=== PATIENT | male | born 1965 | race Caucasian/White ===

== ENCOUNTER 2024-10-01 06:03 | Inpatient (IN) | payer OTHER, SELFPAY ==
[2024-09-24 12:39] VITALS: BMI 25.0
[2024-10-01] VITALS (17 sets, daily range): BP systolic 93–113; BP diastolic 62–74; PULSE 60–119; RESP 9–20; TEMP 35.5–36.7; O2SAT 96–100; BMI 25.0
--- NOTE | 2024-10-01 06:34 | DI.RAD.S_ITS ---
PROCEDURE: XR KNEE RT 1TO2V INDICATIONS: revision tka TECHNIQUE: 2 view(s) of the knee acquired. COMPARISON: Outside Facility, CR, XR KNEE RT 4V, 07/19/2024, 8:19. FINDINGS: Bones: Patient is status post knee joint arthroplasty. Hardware components are in expected positions. Visualized bony structures are intact. Soft tissues: Overlying postoperative changes are noted. IMPRESSION: Expected post-operative appearance of a knee arthroplasty. Dictated by: Sumi Avalos M.D. on 10/01/2024 at 17:41 Approved by: Sumi Avalos M.D. on 10/01/2024 at 17:42
[2024-10-01] MEDS: ACETAMINOPHEN 325 MG TABLET 975 MG PO (06:51)
[2024-10-01] MEDS: MELOXICAM 7.5 MG TABLET 15 MG PO (06:52)
[2024-10-01] MEDS: LACTATED RINGERS 1,000 ML 42 ML IV ×4 (07:05→15:09)
--- NOTE | 2024-10-01 07:44 | PM.PREOP ---
Pre-operative Note Interval Note History & Physical reviewed/Exam performed by Physician: Yes Changes to H&P: No
[2024-10-01] MEDS: CEFAZOLIN 2 GM/100 ML PREMIX 100 ML IV ×3 (08:15→14:15)
[2024-10-01] MEDS: TRANEXAMIC ACID 1,000 MG VIAL 1000 MG INJ ×2 (08:20→15:00)
--- NOTE | 2024-10-01 08:47 | SUR.OPER ---
Supine on padded OR bed. Pillow under head, arms secured on padded armboards <90 degree abduction. Safety belt across torso. Non-operative leg secured with tape over blanket over lower leg. Operative leg secured in RO)BBpositioner. Foam padded brace at thigh of operative leg.
--- NOTE | 2024-10-01 08:49 | SUR.OPER ---
Supine on padded OR bed. Pillow under head, arms secured on padded armboards <90 degree abduction. Safety belt across torso. Non-operative leg secured with tape over blanket over lower leg. Operative leg secured in Figueroa positioner. Foam padded brace at thigh of operative leg.
[2024-10-01] MEDS: GENTAMICIN 80 MG in SODIUM CHLORIDE 0.9% 100 ML 102 MG IV (09:16)
[2024-10-01] MEDS: VANCOMYCIN 1,000 MG VIAL 1000 MG TOP (09:18)
[2024-10-01] MEDS: BUPIVACAINE 0.5% W/ EPI (PF) 30 ML VIAL 60 ML INJ (09:20)
[2024-10-01] MEDS: KETOROLAC 30 MG/ML VIAL IM (09:28)
--- NOTE | 2024-10-01 11:20 | SUR.OPER ---
James Huang RN called and gave patient's an update at 1120.
[2024-10-01] MEDS: TOBRAMYCIN 1.2 GM VIAL INTRA-ARTI (14:00)
--- NOTE | 2024-10-01 15:31 | P.OP_ITS ---
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 Post-op diagnosis: same Procedure & Clinicians Procedure: 1) Explantation of right total knee arthroplasty (CPT 18293) 2) Removal of prior right knee ACL interference screw (CPT 61334) 3) Placement of intraosseous needle for intraosseous vancomycin infusion (CPT 67199) Same procedure(s) as scheduled: Yes Surgeon: Tod Harding Control Technician: Stephanie Avalos Anesthesia Type: General Operative Notes Findings: No gross purulence encountered in the knee joint Specimen(s): other (5 specimens sent) Applied: none Estimated Blood Loss (mL): 450 Tourniquet time (min): 240 Procedure in detail: Explantation of prior right total knee arthroplasty for 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, with removal of deep buried implant (femoral ACL interference screw) and intraosseous administration of vancomycin Antibiotics: * 2 g Cefazolin IV administered at procedure start as well as 3 hours into procedure * 1 g Vancomycin administed intraosseously Cultures: * Retropatellar fat pad * Tibial canal * Femoral canal * Medial gutter * Lateral gutter Procedure Summary: During the 1st of 2 surgeries performed today I explanted the patient's prior right total knee arthroplasty, removed a femoral interference screw from his femur from a prior ACL reconstruction, and extensively debrided the knee as well as prepping the joint surface for an eventual revision right total knee arthroplasty using robotic assistance. I did not note any gross purulence in the joint and noted that the femoral and tibial implants were well fixed. The femur, tibia, and patella were all removed and prepped respectively. Debridement of the joint included clearance of the medial and lateral gutters, excisional debridement of the posterior capsule, intramedullary reaming to remove any bacteria from the femoral and tibial canals, and an extensive chemical debridement which consisted of a total of 9 L of normal saline along with independent soaks of Betadine and peroxide. Procedure in Detail: This 59-year-old male patient was referred to me for a periprosthetic joint infection of his right total knee arthroplasty which had been implanted at an outside facility within the last year. We discussed at length the treatment options for this diagnosis, in particular focusing on two-stage versus single stage knee revision. He is 59 years old, in good health, and had a low virulence organism (C. acnes) so based on the recent multicenter randomized controlled trial demonstrating equivalent infection clearance results with single stage exchange as compared to two-stage exchange did provide him with the option of a single stage exchange. Desiring to avoid the morbidity of an additional surgery the patient wished to proceed with a single stage exchange. Prior to moving forward with surgery I ensured that he was optimized from a medical standpoint and arranged for a consultation with an infectious disease doctor who I also spoke with regarding his care. After arriving at a definitive plan for surgery as well as intraoperative and postoperative antibiotics the surgery was scheduled for today. The patient was counseled extensively regarding the surgery with regards to the risks and benefits and wished to proceed.The patient was met in the preoperative holding area the day of the procedure and all questions were answered. The patient?s nares were swabbed in order to decolonize them from MRSA. Informed consent was signed and the right limb was marked with indelible ink.? The patient was brought back to the operating room where anesthesia was induced. The patient was transferred to the operating table and all bony prominences were padded. The operative site was prepped and draped in the usual sterile fashion. A second prep stick was utilized following drape placement. The incision was marked corresponding to the medial aspect of the tibial tubercle and the patella. Ioban was wrapped circumferentially around the knee. Prior to incision, tranexamic acid and cefazolin were administered. Templating images were displayed. A timeout procedure was performed verifying the patient?s identity, medical comorbidities, allergies, relevant medications, anesthesia type and the surgical plan. All present were in agreement. The assistance of a physician physical laboratory assistant was required for positioning, room setup, soft tissue retraction and wound closure. Without this assistance, the procedure would have been significantly more challenging and time consuming.?? The tourniquet [was] inflated prior to incision. Prior to making an incision I made a stab incision distally and inserted a intraosseous needle into the tibia. I then infiltrated 1 g of vancomycin diluted in 50 mL of normal saline into the tibia in order to bathe the soft tissues of the knee via venous backflow. I made an anterior incision over the knee, dissected through the subcutaneous tissues and identified the lateral border of the VMO. Medial and lateral soft tissue flaps were developed. I removed all of the prior Ethibond sutures from the prior arthrotomy closure. A medial parapatellar arthrotomy was performed ensuring that adequate capsular tissue would remain for closure at the conclusion of the procedure. The knee was brought into extension and the medial soft tissues were released off the joint line of the tibia. Tissue overlying the distal anterior femur was released to allow for later assessment for anterior notching but left in place. Inserted pins for the robotic array into the femur and tibia in areas which would eventually be within the cement mantle of the area were stems would be placed during the next procedure. I registered the robotic array using the [employer] robot and mapped the prior total knee arthroplasty using the robotic system to obtain the parameters of the previous total knee arthroplasty. I then took the knee through stressed and unstressed range of motion to evaluate the relative tension of the medial and lateral sides throughout a full arc of motion and constructed a plan for an eventual revision total knee arthroplasty that would result in a well-balanced knee. This incorporated external rotation of 5? and a 2 degree varus tibial cut in order to achieve appropriate balance. He was planned for a size 8 femur and a size 7 tibia. I then proceeded with component removal. I initially removed the medial congruent polyethylene insert using an osteotome. I removed this from the wound and then focused on the femur. I used a TPS saw to saw the bone cement interface and free this up. I initially did this from the ipsilateral side of the table to free up the lateral bone from the implant and then subsequently moved to the contralateral side of the table to free up a medial bone from the implant. I used osteotomes to further separate the implant from the bone on both the medial and lateral sides while carefully protecting nearby soft tissues with soft tissue retractors. I then used a device which captured the medial and lateral femoral condyles and backslapped this resulting in removal of the femoral implant with minimal bone loss as can be seen in the photograph. There was still cement remaining attached posteriorly but anteriorly the implant had been from the underlying cement. There was no significant bone loss in either of these areas. I then moved on to the tibial component. I hyperflexed and externally rotated the knee and used the TPS saw to free up the interface between the bone and the cement while carefully protecting the patellar tendon, MCL, and posterior neurovascular structures with separate retractors. I passed the saw around the keel anteriorly both on the medial and lateral portions of the tibial joint surface and was able to affectively free this up from the bone in those areas. I then used a single sided reciprocating saw to pass around the back of the knee to free up the posterior bone and then used the same back slap device as I had for the femur to remove the tibia. There was some bone remaining in the portion surrounding the posterior aspect of the keel which remained attached to the implant when it was removed. The tibia had remained well fixed, as had the femur. I then diligently removed all of the cement that I could visualize in the femur. There was a complete cement mantle remaining anteriorly which was removed in 1 piece. There were plugs of cement extending down into lug holes in both the medial distal femur and lateral distal femur which were removed with the aid of a bur. There was minimal posterior cement as this had come with the implant. I then turned my attention to the femoral interference screw from his prior ACL reconstruction. I was able to bur down to this and identified the screw. I had to remove some bone which had overgrown the tunnel entry site and then used a hexagonal screwdriver to remove the interference screw. Based on the plan for the eventual revision total knee arthroplasty which he had been planned on the robotic system I then burred the distal femur. I noted that there was no significant bone missing posteriorly which meant that posterior augments were not needed however distally the bone cement interface was fairly disrupted due to the removal of the cement from around the lugs so I planned for 5 mm distal augments on both the medial and lateral sides and then burred the femur accordingly. This involved burring anteriorly posteriorly and distally using the robotic system. I then moved onto the tibia. I initially removed the cement plug extending down the tibial canal by initially burring through it and then using osteotomes to fracture it before removing them with a rongeur. Once I had removed all of the cement in the tibial canal I then used the robotic system to plan the trajectory of a tibial cut which would match the resection that had been planned using the robotic system based on the soft tissue parameters of the knee. I did add depth to the tibial cut to ensure that I got a good bony interface for the eventual cementation of a revision total knee and planned to utilize a finned base plate augment to substitute for the bone loss. After pinning this in place cut the bone interface using a sagittal saw while protecting the soft tissues around the knee with 3 retractors. This also removed the vast majority of the cement at the interface with the bone however there were a few areas where I rongeured away additional cement that had protruded deeper into the tibial joint surface. I then trialed the primary implants for the tibia and femur respectively both manually and robotically. I found that both the robotic array and on my manual testing there was appropriate medial to lateral and flexion to extension balanced throughout a full arc of motion with a size 13 polyethylene insert. Being satisfied with the intended balancing of the eventual revision total knee I then removed the robotic arrays and the pins in the femur and the tibia. With the tibia and femur both prepped for the configuration of final implants I then debrided the intramedullary canals by progressively increasing the diameters of rigid reamers from 9 mm up to 18 mm. I obtained intramedullary cultures from both the femur and the tibia during this process and removed cancellous bone until there was diaphyseal interference in order to maximize bioburden reduction from contamination of the tibial and femoral canals respectively with bacteria. I then prepped for cones in both the femur and the tibia. On the femoral side this involved placement of a primary knee trial, cutting for a box, placing a small rigid Reamer through the femoral trial, using a boss Reamer and subsequently a cone Reamer, and broaching on the femur with a corresponding size broach. On the tibia I freehand reamed to plan a final implant placement for the tibial cone which would match the joint line obliquity of the tibial resection. Because of the bone loss from around the keel posteriorly during tibial component removal this involved reaming up large enough for a size 22 cone on the tibia. I placed cone trials in both the femur and the tibia and then placed implant trials which included the base plate augment on the tibia and the distal augments on the femur as well as stems for my planned stem sizes on the tibia and femur respectively. I again manually trialed and found that the components all fit appropriately and that the knee was appropriately balanced medial to lateral and with regards to flexion and extension throughout a full arc of motion. This involved stressing in varus and valgus in both flexion and extension and testing for flexion instability as well as passive range of motion of the knee in flexion and extension. I was satisfied with all parameters. I then brought the knee into full extension and placed clamps around the patellar implant to remove the patellar component. This involves using a sagittal saw to remove the patellar component and then using a bur to remove the remaining polyethylene as well as the cement from the cement bone interface. There was a significant amount of bone extending down into the old lug holes and this was removed in its entirety with a bur. I trialed a 38 mm patellar insert which corresponded to the prior size patellar insert. The lugs from the [employer] system fit appropriately with the lugs from the prior patellar insert and I did not have room to drill new holes as the removal of the surrounding cement had resulted in enlargement of the holes surrounding the pegs. I then com pleted the soft tissue debridement by removing the retropatellar fat pad. Part of this had been removed earlier and sent for culture. I also completed the debridement of the medial and lateral gutters and sent these for culture as well. I inserted a lamina bus trolley and taxi instructor into the knee in a position of flexion and used electrocautery to dissect the soft tissues off of the posterior capsule. And momentarily let down the tourniquet and evaluated for any bleeding to ensure that this had not resulted in an iatrogenic injury to the popliteal artery and did not note any brisk bleeding in that area. I then proceeded with a chemical debridement. I initially utilized pulse lavage both with the intramedullary pulse lavage and the soft tissue pulse lavage attachments. I irrigated up and down the canals as well as throughout the entirety of the soft tissues of the knee with 3 L of normal saline. I then poured dilute Betadine into the knee and allowed it to soak for 3 minutes. I then irrigated with an additional 3 L of normal saline again irrigating the bony ends, the intramedullary canals, and the soft tissues around the knee. I then poor dilute peroxide into the knee and allowed it to soak for 3 minutes. I then irrigated with an additional 3 L of normal saline again irrigating the bony ends, the intramedullary canals, and the soft tissues around the knee. The wound was closed with a running nylon suture and a dressing was placed. The operating room was broken down in its entirety with all instruments and drapes removed from the room. The entire operative team scrubbed out and the room was completely broken down including cleaning all of the surfaces in the room. The patient tolerated the procedure without immediate apparent complication. Plan for aftercare: * The patient was planned for an immediate return to the operating room for a second surgery to complete the second stage of his knee revision Complications: none Post-operative Condition: stable
--- NOTE | 2024-10-01 16:18 | PM.OP.1 ---
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 Surgeon: Tod Harding Product Safety Administrator: Stephanie Avalos Anesthesia Type: General, Peripheral nerve block and Local Operative Notes Findings: No significant cement or necrotic tissue noted remaining after prior surgery for total knee explantation Applied: implant(s) Estimated Blood Loss (mL): 150 Tourniquet time (min): 86 Procedure in detail: Revision Right Total Knee Arthroplasty for Periprosthetic Joint Infection with [employer] Revision Implants: Size 8 Femoral Component with 5 mm distal augments both medially and laterally and a [id number] stem Size 18 Femoral Cone Size 7 Tibial Component with 10 mm finned baseplate augment and a [id number] stem Size 22 Tibial Cone 13mm Constrained Steffi II HMWPE Insert 38 mm Steffi II Patellar Component Antibiotics: Calcium sulfate pellets laden with 1 g vancomycin and 80 mg gentamycin placed in the femoral and tibial canals PMMA cement laden with 1.2 g tobramycin and 2 g vancomycin 500 mg powdered vancomycin in the wound at closure Procedure Summary: During the 2nd surgery today I performed a revision total knee arthroplasty. After the prior explantation and extensive debridement revised the knee during this 2nd surgery given the evidence that a single stage exchange arthroplasty has equivalent outcomes in terms of infection eradication as compared to a 2 stage procedure with interval placement of an antibiotic spacer. During this 2nd surgery today I placed definitive implants for the patient's intended permanent total knee including biologic fixation in the femoral and tibial canals in the form of femoral and tibial cones and cemented the components in place using antibiotic laden cement. I also placed antibiotic laden calcium sulfate pellets down the femoral and tibial canals. Procedure in Detail: The operative site was prepped and draped in the usual sterile fashion. A time-out procedure was performed verifying the correct patient, operative site, and procedure to be performed. The assistance of a physician anesthetic assistant was necessary with soft tissue retraction, patient positioning, wound closure, and assistance with debridement. Without the assistance of a skilled physician anesthetic assistant the surgery would have taken significantly longer. Prior to incision consulted with anesthesia to ensure they felt it was appropriate to proceed with the 2nd surgery. All present were in agreement with moving forward with the 2nd surgery. The tourniquet had been let down and was reinflated. The sutures from the closure from the 1st surgery were removed and two Betadine soaked laps which had been left in the wound to protect the bony edges were removed as well. The tourniquet was reinflated. Total tourniquet time today exceeded 120 minutes however approximately 30 minutes of time was elapsed with the tourniquet deflated prior to reinflation at all times throughout the two separate surgeries. I proceeded with a chemical debridement. This involved irrigating with 3 L of normal saline throughout all of the soft tissues of the knee as well as in the femoral and tibial canals using a canal local company refrigerated truck driver. This was performed with pulse lavage. I then soaked all of the soft tissues of the knee for 3 minutes using a dilute mixture of Betadine and peroxide. I then again irrigated with 3 L of normal saline through pulse lavage in the soft tissues of the knee, as well as in the intramedullary canals. I then filled the knee with a dilute mixture of Betadine and peroxide and allowed this to soak for 3 minutes. I then performed a final 3 L normal saline pulse lavage. Final implants were prepared on the back table. The bony ends were dried. I placed antibiotic laden calcium sulfate pellets down the tibial canal and then manually impacted into place a tibial cone. Cement was mixed which included vancomycin and tobramycin. I placed this down the tibial canal. There was a cement restrictor there to pressurize this. I inserted the tibial component. I manually pressurized this and removed excess cement. I placed calcium sulfate pellets down the femoral canal. I placed a cement restrictor in the femoral canal. I placed the femoral cone. Cement was mixed. This was placed onto the femoral component as well as the femoral bone. I inserted the femoral component and impacted in place. I placed a trial polyethylene insert. I brought the knee into full extension. Irrigated and dried the patella. I placed cement on the patellar component and the cut surface of the patella. Placed a new patellar button and pressurized this. While the cement was drying (separate batches had been used for the tibia and the femur/patella respectively) I soaked the knee in a dilute mixture of Betadine and peroxide. Once cement had been allowed to dry trialed polyethylene inserts and elected to utilize a constrained polyethylene insert to maximize stability. I removed excess cement from around the femur and the tibia. Soaked the knee in a dilute mixture of Betadine and peroxide. This was the 5th soak using Betadine and peroxide that I had performed during the 2nd surgery today. Infiltrated the soft tissues around the knee with a dilute mixture of epinephrine, ropivacaine, and Toradol. This included performing a low adductor canal block using an 18 gauge blunt-tipped needle to ensure no intravascular infiltration. The knee was again assessed to ensure appropriate mechanical parameters. Range of motion was assessed by ensuring the knee could achieve full extension and assessing maximum passive knee flexion by elevating the femur and allowing the heel to passively fall towards the buttock. Gap symmetry was assessed by stressing the medial and lateral compartments in both extension and flexion. Laxity was assessed in both extension and flexion and the polyethylene trial was adjusted with shims as necessary. Patellar tracking was assessed with knee flexion. The tourniquet was let down and the polyethylene trial was removed. I inspected the knee inspected for excess cement and any residual bleeding. Once hemostasis was achieved I inserted the final polyethylene and ensured appropriate engagement of the dovetail locking mechanism.?? The arthrotomy was closed with non-absorbable interrupted suture ensuring that this extended to the top of the arthrotomy. This was backed up with running barbed suture throughout the arthrotomy. The skin was closed with 2-0 and 3-0 sutures. Surgical glue was applied and a soft dressing was placed.?The sponge, instrument and needle counts were reported as being correct at the end of the case. The patient was transferred from the operating table back to a stretcher. The patient emerged from anesthesia without difficulty and was taken to the PACU in a stable condition.? Plan for aftercare: Weightbearing as tolerated Aspirin 81 mg twice per day for DVT prophylaxis Hinged knee brace locked in extension for 7 days for soft tissue rest. Can be removed while in bed PICC line to be placed while inpatient for outpatient antibiotic administration through [facility] (Dr. Darron Mata) Ceftriaxone 2 g daily and Rifampin 300 mg BID Tranexamic Acid 2 g daily for swelling prophylaxis while remaining inpatient. Transition to 1.95 g oral daily once discharged Multimodal pain regimen with no IV opioids ordered Inpatient hospitalists to be consulted for assistance with medical management while inpatient Anticipate discharge home in 2 days Follow up at [facility] with me in 2 weeks for wound check Complications: none Post-operative Condition: stable Disposition: Acute Care
[2024-10-01] MEDS: HYDROMORPHONE 1 MG INJ IV ×4 (16:26→16:49)
[2024-10-01] MEDS: OXYCODONE IR 5 MG TABLET PO (16:30)
[2024-10-01] MEDS: ACETAMINOPHEN 325 MG TABLET 650 MG PO ×2 (16:41→22:29)
[2024-10-01 17:42] LABS: Add Manual Diff / Slide Review NO; Hematocrit 35.1 % (41-53); Hemoglobin 11.6 g/dL (13.5-17.5); Lymphocytes Absolute Auto 700 /uL (1100-4500); Mean Corpuscular HGB Conc 33.1 % (30-36); Mean Corpuscular Hemoglobin 30.3 PG (26-34); Mean Corpuscular Volume 91.5 fL (80-100); Platelet Count 295 X10^3/uL (150-400)
--- NOTE | 2024-10-01 17:50 | P.CONS_ITS ---
History of Present Illness Consult details Date Patient Seen: 10/01/24 Chief complaint: R TKA revision Narrative: The patient was a pleasant 59-year-old male seen in consultation at the request of Dr. Harding. The patient underwent explantation of hardware and ACL screw as well as placement of a biodegradable antibiotic delivery device for a periprosthetic joint infection of a previous right total knee arthroplasty. He then underwent revision TKA. The patient has a past medical history of colon cancer status post resection and treatment which is currently in remission. He had been experiencing pain in his right knee for several months and was found to have a periprosthetic joint infection with Cutibacterium acne is. His initial knee surgery was in February of 2024. The plan is to go home with IV antibiotics and access, this will be managed primarily by [facility] in [place]. I saw the patient after his surgery, shortly after arrival to the medical mares. He is slowly waking up and relatively comfortable. He denies any acute dyspnea or pain that has not controlled with his medication. Meds Home Medications and Allergies Home Medications ?Medication ?Instructions ?Recorded ?Confirmed ?Type alprazolam 0.5 mg tablet (Xanax) 0.5 mg PO DAILY PRN a nxiety 09/14/24 09/28/24 History meloxicam 15 mg tablet 15 mg PO DAILY #60 tabs 09/0310/01/24 Rx Allergies Allergy/AdvReac Type Severity Reaction Status Date / Time No Known Drug Allergies Allergy Verified 10/01/24 07:03 Review of Systems Review of Systems Narrative: All else reviewed and otherwise unremarkable except as noted in the history and physical. Exam Vital Signs (past 8 hours): - 10/01/24 16:10 10/01/24 16:15 10/01/24 16:20 Temperature 97.2 F L Pulse Rate 119 H 118 H 112 H Respiratory Rate 12 10 L 10 L Blood Pressure 110/74 113/72 112/71 Pulse Oximetry 98 98 98 Oxygen Delivery Method Room Air Room Air Room Air Oxygen Flow Rate 10/01/24 16:25 10/01/24 16:30 10/01/24 16:35 Temperature Pulse Rate 112 H 116 H 112 H Respiratory Rate 10 L 10 L 10 L Blood Pressure 108/74 100/72 94/68 Pulse Oximetry 98 98 99 Oxygen Delivery Method Room Air Room Air Room Air Oxygen Flow Rate 10/01/24 16:40 10/01/24 16:45 10/01/24 16:51 Temperature 98.0 F Pulse Rate 110 H 111 H 111 H Respiratory Rate 9 L 10 L 12 Blood Pressure 101/69 95/62 99/66 Pulse Oximetry 96 98 97 Oxygen Delivery Method Room Air Room Air Room Air Oxygen Flow Rate 10/01/24 16:55 10/01/24 17:02 10/01/24 17:11 Temperature 97.9 F Pulse Rate 111 H 115 H 109 H Respiratory Rate 12 12 12 Blood Pressure 96/69 93/68 104/67 Pulse Oximetry 96 96 96 Oxygen Delivery Method Room Air Room Air Room Air Oxygen Flow Rate 10/01/24 17:25 Temperature 95.9 F L Pulse Rate 115 H Respiratory Rate 20 Blood Pressure 99/72 Pulse Oximetry 96 Oxygen Delivery Method Oxygen Flow Rate 0 Oxygen Delivery Method Room Air Oxygen Flow Rate 0 Narrative Exam Narrative: NAD, alert and oriented, fluent speech, calm. Normocephalic skull, EOMI, anicteric sclera, symmetric pupils. Oropharynx unremarkable, no droop. Neck supple, midline trachea, no adenopathy. Lungs clear, normal rate and effort. Heart regular, no murmur gallop or rub. Abdomen is soft, non distended and non tender. Extremities are free of edema. Skin is free of rash or lesions. Joints are not swollen or deformed. Judgment appears to be normal. Right knee is wrapped. Objective Labs 10/01/24 17:35 Labs: Laboratory Results - last 24 hr 10/01/24 17:35 WBC 16.3 H RBC 3.83 L Hgb 11.6 L Hct 35.1 L MCV 91.5 MCH 30.3 MCHC 33.1 RDW 13.7 Plt Count 295 Neut % (Auto) 92.3 H Lymph % (Auto) 4.4 L [place] % (Auto) 3.2 Eos % (Auto) 0.0 L Baso % (Auto) 0.1 Neut # (Auto) 55235 H Lymph # (Auto) 700 L [place] # (Auto) 500 Eos # (Auto) 0 Baso # (Auto) 0 PFSH Medical History Colon cancer (2016) Infection of prosthetic right knee joint Surgical History History of total right knee replacement (TKR) (02/14/24) S/P colon resection (2016) Social History household members: spouse Tobacco & Substance Use Smoking Status: Never smoker alcohol intake: former Assessment & Plan Assessment & Plan narrative: 1. Explantation of a right knee arthroplasty and ACL interference screw with intraoperative interosseous vancomycin infusion. 2. Revision TKA. Plan: -we will help coordinate discharge with IV antibiotics as [facility]. -we will monitor renal function overnight. -PICC line placement. -Antibiotics: Ceftriaxone 2 g IV daily and rifampin 300 mg p.o. b.i.d.. Duration: at least 6 weeks. This will be followed by ceftriaxone 500 mg b.i.d. and rifampin for another 6 weeks to 12 weeks. ID physician: Dr. Esperanza Montejo, [place]. Full code is proxy Time-Based Coding :: 35 min spent with patient and on the chart (including review of chart, obtaining history, exam, reviewing outside data, placing orders, documenting exam and treatment plan, and counseling patient) on 10/01.
--- NOTE | 2024-10-01 18:00 | PM.PN.IH.1 ---
Subjective Subjective Interval history: I came by to check on Monika postoperatively. He was resting comfortably when I arrived icing his right knee with a hinged knee brace in place that was locked in extension. He had intact sensory motor function distally in his foot. He was in no acute distress. He did endorse discomfort but his pain was reasonably controlled. He and his had numerous questions regarding surgery which I answered. We will proceed with hospital care as previously planned Weightbearing as tolerated Aspirin 81 mg twice per day for DVT prophylaxis 5 cultures were sent intraoperatively. His preoperative culture was positive for C. Acnes. I have contacted the lab to request that the cultures be run for 14 days as this is how long it can take to result positive for C. Acnes Hinged knee brace locked in extension for 7 days for soft tissue rest. Can be removed while in bed PICC line to be placed while inpatient for [facility] antibiotic [facility] (Dr[facility] Darron Mata) Ceftriaxone 2 g daily and Rifampin 300 mg BID Tranexamic Acid 2 g daily for swelling prophylaxis while remaining inpatient. Transition to 1.95 g oral daily once discharged Multimodal pain regimen with no IV opioids ordered Inpatient hospitalists to be consulted for assistance with medical management while inpatient Anticipate discharge home in 2 days Follow up at [facility] with me in 2 weeks for wound check Exam Vital Signs (past 8 hours): - 10/01/24 16:10 10/01/24 16:15 10/01/24 16:20 Temperature 97.2 F L Pulse Rate 119 H 118 H 112 H Respiratory Rate 12 10 L 10 L Blood Pressure 110/74 113/72 112/71 Pulse Oximetry 98 98 98 Oxygen Delivery Method Room Air Room Air Room Air Oxygen Flow Rate 10/01/24 16:25 10/01/24 16:30 10/01/24 16:35 Temperature Pulse Rate 112 H 116 H 112 H Respiratory Rate 10 L 10 L 10 L Blood Pressure 108/74 100/72 94/68 Pulse Oximetry 98 98 99 Oxygen Delivery Method Room Air Room Air Room Air Oxygen Flow Rate 10/01/24 16:40 10/01/24 16:45 10/01/24 16:51 Temperature 98.0 F Pulse Rate 110 H 111 H 111 H Respiratory Rate 9 L 10 L 12 Blood Pressure 101/69 95/62 99/66 Pulse Oximetry 96 98 97 Oxygen Delivery Method Room Air Room Air Room Air Oxygen Flow Rate 10/01/24 16:55 10/01/24 17:02 10/01/24 17:11 Temperature 97.9 F Pulse Rate 111 H 115 H 109 H Respiratory Rate 12 12 12 Blood Pressure 96/69 93/68 104/67 Pulse Oximetry 96 96 96 Oxygen Delivery Method Room Air Room Air Room Air Oxygen Flow Rate 10/01/24 17:25 Temperature 95.9 F L Pulse Rate 115 H Respiratory Rate 20 Blood Pressure 99/72 Pulse Oximetry 96 Oxygen Delivery Method Oxygen Flow Rate 0 Oxygen Delivery Method Room Air Oxygen Flow Rate 0 Objective Labs 10/01/24 17:35 Labs: Laboratory Results - last 24 hr 10/01/24 17:35 WBC 16.3 H RBC 3.83 L Hgb 11.6 L Hct 35.1 L MCV 91.5 MCH 30.3 MCHC 33.1 RDW 13.7 Plt Count 295 Neut % (Auto) 92.3 H Lymph % (Auto) 4.4 L [place] % (Auto) 3.2 Eos % (Auto) 0.0 L Baso % (Auto) 0.1 Neut # (Auto) 37671 H Lymph # (Auto) 700 L Jerome # (Auto) 500 Eos # (Auto) 0 Baso # (Auto) 0 PFSH Medical History Colon cancer (2016) Infection of prosthetic right knee joint Surgical History History of total right knee replacement (TKR) (02/14/24) S/P colon resection (2015) Social History household members: spouse alcohol intake: former Assessment & Plan Time-Based Coding :: [TOTAL MINUTES] spent with patient and on the chart (including review of chart, obtaining history, exam, reviewing outside data, placing orders, documenting exam and treatment plan, and counseling patient) on [DATE]. Quality VTE Deep Vein Thrombosis/Pulmonary Embolism Present on Admission: No IH PROFEE Trade Manager Document charge(s): No
[2024-10-01] MEDS: cefTRIAXone 2,000 MG in SODIUM CHLORIDE 0.9% 100 ML 200 MG IV (18:13)
[2024-10-01] MEDS: IBUPROFEN 600 MG TABLET PO ×2 (18:22→23:58)
[2024-10-01] MEDS: ONDANSETRON 4 MG/2 ML INJ IV (18:50)
[2024-10-01] MEDS: OXYCODONE IR 5 MG TABLET 10 MG PO (19:44)
[2024-10-01] MEDS: DOCUSATE 100 MG CAPSULE PO (20:05)
[2024-10-01] MEDS: ASPIRIN EC 81 MG TABLET PO (20:05)
[2024-10-01] MEDS: OXYCODONE IR 10 MG TABLET 5 MG PO (22:51)
[2024-10-01] MEDS: ONDANSETRON 4 MG ODT PO (22:52)
[2024-10-02 00:08] VITALS: BP 103/64; PULSE 77; RESP 16; TEMP 35.9; O2SAT 100
[2024-10-02] MEDS: CALCIUM CARBONATE 500 MG TAB 1000 MG PO ×3 (00:15→10:19)
--- NOTE | 2024-10-02 00:47 | PC.NURSE ---
Patient is alert and oriented. Breath sounds CTA with RA sat of 98%. HRR. Initially denied nausea but then later had a 200cc emesis so was medicated with Zofran ODT and then later had another 150cc emesis; provided gingerale. Patient states the nausea comes in waves and he vomits and then nausea resolves. He also complained of heartburn so Dr Youngblood informed and Tums ordered and given to patient. Was diaphoretic at shift change. BT inactive. Was able to void 200cc of dark kings urine via urinal and stated it burned with urination; (had catheter during surgery which was removed in PACU). Encouraged to increase po fluids and if persists to notify RN. Is moving himself in bed. Has not been out of bed since return from surgery. Right knee has ISAÍAS dressing with what appears to be kerlix dressing with nerissa covering; ISAÍAS is functioning. Right leg is in immobilizer. States right knee is not painful but has been complaining of right ankle pain ranging from 4/10 to 7/10; receiving scheduled Tylenol + Ibuprofen and prn oxycodone for pain management. Has ice packs to knee and ankle along with ice machine. Has numbness in right foot and is unable to flex/extend ankle but can wiggle toes and lift leg slightly off bed. Is wearing bilateral calf SCD's. Fall risk score is high and bed alarm is activated.
[2024-10-02] MEDS: OXYCODONE IR 5 MG TABLET 10 MG PO ×7 (02:01→21:28)
[2024-10-02] MEDS: LACTATED RINGERS 1,000 ML 42 ML IV (02:03)
[2024-10-02] MEDS: ACETAMINOPHEN 325 MG TABLET 650 MG PO ×4 (04:17→21:27)
[2024-10-02 05:38] LABS: Blood Urea Nitrogen 16 mg/dL (9-20); Calcium 8.7 mg/dL (8.4-10.2); Carbon Dioxide 24 mmol/L (22-32); Chloride 101 mmol/L (98-107); Estimated Glomerular Filt Rate > 60 mL/min (>60); Glucose 134 mg/dL (70-99); HEMOLYSIS < 15 (0-50); Potassium 4.1 mmol/L (3.4-5.1); Sodium 134 mmol/L (137-145)
[2024-10-02] MEDS: IBUPROFEN 600 MG TABLET PO ×3 (05:53→18:03)
--- NOTE | 2024-10-02 07:54 | P.PN_ITS ---
Subjective Subjective Date Patient Seen: 10/02/24 Interval history: He tells me that he lives in [place]. His infectious disease doctor is at [facility] in [place]. His primary care physician is Dr. Bauer. 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 His BMP is normal with a glucose of 134. The 10/01 WBC is 16.3. He is postop day 1 For placement of a new TKA in the right knee. He is receiving a PICC line today and will be going home on IV antibiotics. He is also on TXA per Orthopedics. Exam Vital Signs (past 8 hours): - 10/02/24 00:08 Temperature 96.6 F L Pulse Rate 77 Respiratory Rate 16 Blood Pressure 103/64 Pulse Oximetry 100 Oxygen Flow Rate 0 Oxygen Delivery Method Room Air Oxygen Flow Rate 0 Narrative Exam Narrative: Alert and oriented x3. No apparent distress. Heart is regular rate and rhythm without murmur Extremities have no ankle edema. The right knee is in a brace and dressing. Lungs are clear to auscultation bilaterally Objective Labs 10/01/24 17:35 10/02/24 04:28 Labs: Laboratory Results - last 24 hr 10/01/24 10/02/24 17:35 04:28 WBC 16.3 H RBC 3.83 L Hgb 11.6 L Hct 35.1 L MCV 91.5 MCH 30.3 MCHC 33.1 RDW 13.7 Plt Count 295 Neut % (Auto) 92.3 H Lymph % (Auto) 4.4 L [place] % (Auto) 3.2 Eos % (Auto) 0.0 L Baso % (Auto) 0.1 Neut # (Auto) 81148 H Lymph # (Auto) 700 L [place] # (Auto) 500 Eos # (Auto) 0 Baso # (Auto) 0 Sodium 134 L Potassium 4.1 Chloride 101 Carbon Dioxide 24 BUN 16 Creatinine 0.72 Estimated GFR > 60 BUN/Creatinine Ratio 22.2 H Glucose 134 H Calcium 8.7 PFSH Medical History Colon cancer (2016) Infection of prosthetic right knee joint Surgical History History of total right knee replacement (TKR) (02/14/24) S/P colon resection (2016) Social History household members: spouse Smoking Status: Never smoker alcohol intake: former Assessment & Plan Assessment & Plan narrative: 1. POD #1 Explantation of a right knee arthroplasty and ACL interference screw with intraoperative interosseous vancomycin infusion. 2. Revision TKA. Plan: -we will help coordinate discharge with IV antibiotics as previously defined by Infectious Disease, [facility]. -we will monitor renal function. -PICC line placemen today -Antibiotics: Ceftriaxone 2 g IV daily and rifampin 300 mg p.o. b.i.d.. Duration: at least 6 weeks. This will be followed by ceftriaxone 500 mg b.i.d. and rifampin for another 6 weeks to 12 weeks. [facility] Full code Time-Based Coding :: [TOTAL MINUTES] spent with patient and on the chart (including review of chart, obtaining history, exam, reviewing outside data, placing orders, documenting exam and treatment plan, and counseling patient) on [DATE]. Quality VTE Deep Vein Thrombosis/Pulmonary Embolism Present on Admission: No
[2024-10-02 08:04] VITALS: BP 95/63; PULSE 83; RESP 15; TEMP 36.3; O2SAT 100
[2024-10-02] MEDS: DOCUSATE 100 MG CAPSULE PO ×2 (08:14→20:36)
[2024-10-02] MEDS: ASPIRIN EC 81 MG TABLET PO ×2 (08:14→20:36)
--- NOTE | 2024-10-02 08:54 | DI.RAD.S_ITS ---
PROCEDURE: XR CHEST FOR PICC 1V INDICATIONS: line placement COMPARISON: None. FINDINGS: PICC was placed by the intravenous therapy team from the left side. Fluoroscopic spot film demonstrates the tip of PICC projecting to the area of SVC right atrial junction. IMPRESSION: Tip of PICC projects to the area of SVC/right atrial junction. Dictated by: Heron Kumar M.D. on 10/02/2024 at 9:32 Approved by: Heron Kumar M.D. on 10/02/2024 at 9:32
[2024-10-02] MEDS: TRANEXAMIC ACID 2,000 MG in SODIUM CHLORIDE 0.9% 100 ML 200 MG IV (09:49)
--- NOTE | 2024-10-02 09:50 | PT.IIE ---
Current Diagnoses Infection and inflammatory reaction due to internal right knee prosthesis, initial encounter (10/01/24) Surgery Performed Operation Date: 10/01/24 07:45 Actual Procedures p Total Knee Arthroplasty Revision - Robot(Right) - Tod Harding MD Surgical History (Last Reviewed 10/01/24 @ 17:53 by Everardo Thompson MD) History of total right knee replacement (TKR) (02/14/24) S/P colon resection (2016) Medical History (Last Reviewed 10/01/24 @ 17:53 by Everardo Thompson MD) Colon cancer (2016) Infection of prosthetic right knee joint Physical Therapy Inpatient Evaluation/Re-Eval M1 PT/OT-IP Prior Functional Status Start: 10/02/24 12:25 Freq: NEEDED Status: Active Protocol: Document 10/02/24 09:50 AB (Rec: 10/02/24 12:46 AB [id number]) Medical Review Prior Functional Status Medical History Yes Reviewed Communication able to make needs known Mobility and Gait pt stated that he was independent with all mobilities and ambulation without AD Social History Household Members spouse Living Arrangements House Number of Floors ( Two Floors Floors) Number of Stairs To pt plans to stay on the main level of the house Enter/Railing? has 2 steps R rail ascending to enter the house Home Environment Standard Height Toilet,Walk in Shower,Built-In Shower Seat Home Equipment Front Wheel Walker,Crutches,Hand Held Shower M2 PT-IP Current Condition Start: 10/02/24 12:25 Freq: NEEDED Status: Active Protocol: Document 10/02/24 09:50 AB (Rec: 10/02/24 12:46 AB [id number]) Physical Therapy Current Condition Current Condition Evaluation Date 10/02/24 Treatment Diagnosis s/p R TKA revision; difficulty in walking Onset Date 10/01/24 M3 PT-IP Subjective Start: 10/02/24 12:25 Freq: NEEDED Status: Active Protocol: Document 10/02/24 09:50 AB (Rec: 10/02/24 12:46 AB [id number]) Subjective Physical Therapy Visit Type Type Initial Evaluation Visit Start Time 09:50 Visit Stop Time 10:35 Number of DAY CAMP COUNSELOR Visits 0 Physical Therapy Visit Comments Patient Comments agreeable to do PT Therapy Pain Assessment Pain When Pain Assessed At Rest Pain Present Pain Present Pain Reported Location Right Ankle Intensity 5 Scale Used Numeric (0 - 10) Pain Behaviors Guarding Pain Management Apply Cold,Distraction,Modification of Treatment,Re- Techniques positioning,Timing of Activity with Medications right knee Intensity 5 Scale Used Numeric (0 - 10) Pain Behaviors Guarding,Holding Area Pain Management Apply Cold,Distraction,Elevation,Modification of Techniques Treatment,Timing of Activity with Medications M4 PT-IP Mobility and Gait Start: 10/02/24 12:25 Freq: NEEDED Status: Active Protocol: Document 10/02/24 09:50 AB (Rec: 10/02/24 12:46 AB [id number]) PT-Bed Mobility Assessment Supine to Sit Supine to Sit Standby Assistance PT-Transfer Assessment Sit to and From Stand Sit to and from Contact Guard Assistance,1 Person Assistance,Use of Stand Upper Extremities Equipment Transfer Assistive Gait Belt,Front Wheeled Walker Device Orthotic/Prosthetic No Devices or Brace: Transfers Transfer Destination Chair Transfer Technique ambulated Transfer Ability Level of Assist Contact Guard Assistance,1 Person Assistance,Use of Upper Extremities Comments Mobility Comments pt in bed and agreeable to do PT. obtained PLOF and home setup. Pt with R hinged knee brace on lock position. completed supine to sit SBA. sit to stand CGA. pt ambulated towards the chair using fWW CGA. refused further ambulation with c/o knee pain and ankle pain but agreed to stay up on the chair. positioned pt on the chair. call light and table placed within reach. Gait Assessment Gait Gait Assistance Contact Guard Assist Required: Distance (Feet) 15 Able to Maintain Yes Weight Bearing Status During Gait Assistive Devices Assistive Device Gait Belt,Front Wheeled Walker Orthotic/Prosthetic Yes Devices or Brace: Gait Deviations General Gait Pattern Antalgic,Decreased Stride Length,Decreased Feet Clearance,Step-to Gait Factors Limiting Gait Function Factors Limiting Decreased Activity Tolerance,Decreased Sensation, Gait Function Decreased Strength,Limited Range of Motion,Pain,Poor Balance,Poor Safety Awareness PT-Balance Assessment Sitting Balance and Reactions Static Sitting Normal Balance Ability Dynamic Sitting Good Balance Ability Standing Balance and Reactions Static Standing Fair Balance Ability Dynamic Standing Fair Balance Ability Device Used FWW M5 PT-IP Objective Assessments Start: 10/02/24 12:25 Freq: NEEDED Status: Active Protocol: Document 10/02/24 09:50 AB (Rec: 10/02/24 12:46 AB [id number]) Orientation Orientation/Cognition Level of Alertness Alert Orientation Name,Place,Situation Language Function No Deficits Noted Ability Safety Awareness Decreased Safety Awareness Memory Description No Deficits Noted Gross Range of Motion Lower Extremity ROM Impairments R knee NT: has R hinged brace on lock in extension position: per ortho notes: knee immobilizer for 7 days. Strength Lower Extremity Strength Assessment Right Impaired Hip 3-/5 Knee nt Sensation Assessment Sensation Gross Sensation Right LE Impaired,Left LE Impaired Sensation Numbness Description Comments Sensation Comments chronic BLE neuropathy per pt Muscle Tone Muscle Tone WNL Yes M6 PT-IP Treatment Start: 10/02/24 12:25 Freq: NEEDED Status: Active Protocol: Document 10/02/24 09:50 AB (Rec: 10/02/24 12:46 AB [id number]) Physical Therapy Treatment Education Education Provided Precautions,Weight Bearing Status,Post-Op Packet,Safety M7 PT-IP Assessment and Plan Start: 10/02/24 12:25 Freq: NEEDED Status: Active Protocol: Document 10/02/24 09:50 AB (Rec: 10/02/24 12:46 AB [id number]) PT Summary Assessment and Plan Potential Rehabilitation Fair Potential Status of Condition Evolving at Evaluation Summary Impairments Pain,ROM,Strength,Balance,Coordination,Sensation,Tone, Cognition,Bed Mobility,Transfers,Gait,Activity Tolerance Assessment Summary pt is a 59 y/o M s/p R TKA revision POD 1. pt with R knee hinged brace locked in extension and is WBAT. pt requiring CGA for transfers and ambulation using FWW. pt plans to go home and spouse will be able to assist him. will continue to assess progress. Goals Bed Mobility Goal Independent Transfer Goal Independent,Front Wheeled Walker Gait Goal Independent,Front Wheel Walker Gait Distance 100 Other Goals up/down 2 steps R rail ascending SBA. Days to Meet Goals 10 Frequency of Treatment Other frequency 1-2x/day Treatment Plan Physical Therapy Bed Mobility Training,Transfer Training,Gait Training, Treatment Plan Therapeutic Exercise,Balance Retraining,Post Op Education,Discharge Planning,Hot or Cold Pack, Neuromuscular Re-ed,Coordination Retraining,Manual Therapy Other stair climbing Recommendations and Next Treatment Focus Precautions Brace R knee hinge brace locked in extension Weight Bearing Status Weight Bearing Weight Bear as Tolerated Status Allowed Weight RLE WBAT Bearing Amount ( enter % or #) (%) Recommendations To Nursing Amount of Assist 1 Person Assist Needed Discharge Recommendations PT Discharge Home with Assistance,Outpatient PT Recommendations Transportation Needs Private Vehicle at Discharge - PT assist 1
[2024-10-02] MEDS: ONDANSETRON 4 MG ODT PO (11:06)
--- NOTE | 2024-10-02 13:02 | CM.DANOTE ---
Initial DCP Assessment Visit Note Reviewed EMR and team rounds for pt's medical status and updates. Met with pt at bedside to introduce self and role. Pt was found to be alert/oriented, sitting comfortably in the recliner at the time of this visit. Pt lives independently at baseline with his spouse in their own home in [place]. He has been modified independent since last fall when he had his initial R-total knee arthroplasty in February, and after which became infected and restricted his mobility for several months. His spouse will transport him home once he's medically cleared for home d/c, likely either 10/03 or 10/04. Payor: [facility] Attendng: Dr. Harding Pt is a 59 year-old M post-op day 1 from a R-total knee revision due to infection and inflammatory reaction from the hardware initially used in his first R-total knee surgery in February 2024. [facility] in [place] I&D doctor will be following his OP IV home antibiotic plan, yet to be confirmed. He is doing well postoperatively, and is currently getting his initial IV ABO tx here while inpt. He will be working with therapies today. BUCK is coordinating with [facility] for the final OP IV ABO plan for d/c. Discharge Planning/Care Management CM Discharge Assessment Start: 10/01/24 06:33 Freq: Status: Active Protocol: Document 10/02/24 12:57 DPL (Rec: 10/02/24 13:01 DPL [id number]) Discharge Planning Assessment Assigned Discharge [facility] Tender Advance Directives? No History Provided By Patient,Medical Record Has Patient been No admitted in last 30 days? Prior Living House Arrangements Household Members spouse Type of Drives own vehicle transporation used prior to admit Caregiver for No Another [facility] Physical Therapy used prior to admission: DME Already Rented / FWW / Walker,Cane Owned Patient/Family OP PT Therapy Preference Barriers to No Discharge Discharge Plan Home Transportation Spouse Arrangement Referrals Initiated Home Health Additional Comment [facility] for home antibiotics, Home Health. Has Agency SNF been No contacted Whiteboard Updated Yes in Patient Room with name and ext. # of Manager Basketball Review Status In Process Please Provide Date 10/02/24 Initial DC Assessment Was Performed Pre-Anesthesia Assessment Start: 09/24/24 12:39 Freq: Status: Complete Protocol: Document 09/24/24 12:39 LB (Rec: 09/24/24 13:14 LB [id number]) Pre-Anesthesia Assessment PAC Comment 09/24/24 Phone assessment. Patient Information Phone Assessment Reviewed Via Assessment Completed Patient With Diagnostic Results BMP/CMP,CBC,EKG Comment 09/12/24 outside results. 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 Pain Present Pain Reported Comment Right knee. Musculoskeletal Abnormal Gait,Difficulty Walking,Joint Pain Symptoms History of Falling ( Yes Recent or History of ) Patient is No completely paralyzed or completely immobile Mental Status Oriented to own ability Comment Will bring walker. Is patient on oxygen No ? 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 or Internal Medical Devices Have you had any No close contact with someone diagnosed with COVID-19? Are you experiencing No symptoms any of these symptoms? Comment Denies covid last 8 weeks. Marital Status Lives With spouse Current Living House Arrangements Number of Floors ( One Floor Floors) Number of Stairs To 2 steps with railing to enter. Enter/Railing? Support System Sibling(s),Spouse Patient Discharge Return Home Plan Description Additional comment Advised at least one noc LOS. Feels Safe in Yes Current Environment Do You Have Any No Spiritual Beliefs That May Affect Your HC Choices? Do You Have Any No Cultural Practices That May Affect Your HC Choices? Emergency Contact Jailene Cullen - Name Emergency Contact [phone] Phone Number Advance Directives? Yes Advance Directives No on File PAC Instructions Assistance for 24 hours post-op,Durable medical equipment,Medications to take/avoid,No ETOH/petroleum product on skin DOS,NPO,Pre-surgical wash,Sensory aids, Sturdy shoes/comfortable clothes,Do not bring valuables and remove jewelry
--- NOTE | 2024-10-02 14:06 | OT.IPNOTE ---
Touched base with pt ,states has all OT equipment needs and to be getting him a non slip mat. Pt states has no OT needs and therefore discharge pt from OT services, nursing notified.
--- NOTE | 2024-10-02 14:19 | P.PN_ITS ---
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 The primary reason for today's encounter is postoperative evaluation and management. PAST SURGICAL HISTORY - Single-stage exchange of right total knee arthroplasty performed by me at [facility] on 2024-10-01. No complications noted at the time of surgery. SUBJECTIVE The patient described the night as brutal due to nausea and vomiting, but reports improvement with Zofran. He also reports ongoing ankle pain and new knee pain starting this morning. He mentioned his blood pressure dropped significantly postoperatively. The patient engaged in conversation about a [employer] Bear study related to ACL repair and discussed satisfaction with the surgery outcome and the quality of previous joint work. PHYSICAL EXAM 1) Constitutional - Alert and oriented, engaged in conversation, mental status intact. 2) Musculoskeletal - Right lower extremity: Cosme wrap and hinge knee brace in place. Probable posterior tibial (PT) and dorsalis pedis (DP) pulses present. Flexion and extension of the hallux and ankle intact. Sensation and tactile light touch in the right foot are intact. ASSESSMENT - Postoperative status following single-stage exchange of right total knee arthroplasty. - Nausea and vomiting likely secondary to anesthesia. - Ankle pain of unclear etiology. - Differential Diagnosis: Continued postoperative pain management, nausea management, and monitoring for infection recurrence. PLAN - Continue ceftriaxone and rifampin. - Place PICC line today for ongoing antibiotic therapy. - Tranexamic acid for swelling prevention - Encourage ambulation as tolerated with a hinging knee brace. - Monitor labs and cultures. Cultures to be monitored for 14 days. - Follow up outpatient with [facility] infectious disease. - Maintain incisional wound vac until follow-up in two weeks. DISPOSITION Anticipate discharge hopefully tomorrow Exam Vital Signs (past 8 hours): - 10/02/24 08:04 Temperature 97.4 F L Pulse Rate 83 Respiratory Rate 15 Blood Pressure 95/63 Pulse Oximetry 100 Oxygen Flow Rate 0 Oxygen Delivery Method Room Air Oxygen Flow Rate 0 Objective Labs 10/01/24 17:35 10/02/24 04:28 Labs: Laboratory Results - last 24 hr 10/01/24 10/02/24 17:35 04:28 WBC 16.3 H RBC 3.83 L Hgb 11.6 L Hct 35.1 L MCV 91.5 MCH 30.3 MCHC 33.1 RDW 13.7 Plt Count 295 Neut % (Auto) 92.3 H Lymph % (Auto) 4.4 L [place] % (Auto) 3.2 Eos % (Auto) 0.0 L Baso % (Auto) 0.1 Neut # (Auto) 03279 H Lymph # (Auto) 700 L [place] # (Auto) 500 Eos # (Auto) 0 Baso # (Auto) 0 Sodium 134 L Potassium 4.1 Chloride 101 Carbon Dioxide 24 BUN 16 Creatinine 0.72 Estimated GFR > 60 BUN/Creatinine Ratio 22.2 H Glucose 134 H Calcium 8.7 PFSH Medical History Colon cancer (2015) Infection of prosthetic right knee joint Surgical History History of total right knee replacement (TKR) (02/14/24) S/P colon resection (2015) Social History household members: spouse Smoking Status: Never smoker alcohol intake: former Assessment & Plan Post-op Postoperative Procedures: Procedures Operation Date: 10/01/24 07:45 Actual Procedure Side Surgeon p Total Knee Arthroplasty Revision - Robot Right Tod Harding MD Quality VTE Deep Vein Thrombosis/Pulmonary Embolism Present on Admission: No
[2024-10-02] MEDS: cefTRIAXone 2,000 MG in SODIUM CHLORIDE 0.9% 100 ML 200 MG IV (17:20)
[2024-10-02 18:11] LABS: Add Manual Diff / Slide Review NO; Hematocrit 25.6 % (41-53); Hemoglobin 8.7 g/dL (13.5-17.5); Lymphocytes Absolute Auto 1200 /uL (1100-4500); Mean Corpuscular HGB Conc 34.0 % (30-36); Mean Corpuscular Hemoglobin 30.8 PG (26-34); Mean Corpuscular Volume 90.6 fL (80-100); Platelet Count 189 X10^3/uL (150-400)
[2024-10-02 20:00] VITALS: BP 115/62; PULSE 81; RESP 16; TEMP 36.6; O2SAT 98
[2024-10-03] MEDS: IBUPROFEN 600 MG TABLET PO ×2 (00:24→06:38)
[2024-10-03] MEDS: OXYCODONE IR 5 MG TABLET 10 MG PO ×4 (00:24→11:18)
--- NOTE | 2024-10-03 01:19 | PC.NURSE ---
Assumed care of pt @ 01:00.
[2024-10-03] MEDS: ACETAMINOPHEN 325 MG TABLET 650 MG PO ×2 (05:15→10:43)
--- NOTE | 2024-10-03 07:23 | P.DS_ITS ---
History of Present Illness History of Present Illness Date Patient Seen: 10/03/24 Chief complaint: R TKA revision Narrative: The patient was a pleasant 59-year-old male seen in consultation at the request of Dr. Harding. The patient underwent explantation of hardware and ACL screw as well as placement of a biodegradable antibiotic delivery device for a periprosthetic joint infection of a previous right total knee arthroplasty. He then underwent revision TKA. The patient has a past medical history of colon cancer status post resection and treatment which is currently in remission. He had been experiencing pain in his right knee for several months and was found to have a periprosthetic joint infection with Cutibacterium acne is. His initial knee surgery was in February of 2024. The plan is to go home with IV antibiotics and access, this will be managed primarily by [facility] in [place]. I saw the patient after his surgery, shortly after arrival to the medical mares. He is slowly waking up and relatively comfortable. He denies any acute dyspnea or pain that has not controlled with his medication. Discharge Providers Provider Date of admission: 10/01/24 06:03 Discharge Date: 10/03/24 Primary care physician: Angelo Bauer Consults: 10/01/24 06:34 Consult to Anesthesiology Routine Comment: Consulting Provider: Anesthesiologist Reason for consultation: Regional block for post operative pain control 10/01/24 16:08 Consult to Discharge Planning Routine Comment: Consult to Occupational Therapy Evaluate & Treat Comment: Physician Instructions: Evaluate and treat Consult to Physical Therapy Evaluate & Treat Comment: Knee immobilizer for 7 days Physician Instructions: Evaluate and Treat Discharge provider: Hill Estrada MD Summary Hospital Course Hospital Course: 1. POD #2 Explantation of a right knee arthroplasty and ACL interference screw with intraoperative interosseous vancomycin infusion. 2. Revision TKA. 3. ABLA - hgb dropped from 11.6 to 8.7 Plan: -Coordinate discharge with IV antibiotics as previously defined by Infectious Disease, [facility]. -PICC line placed -Antibiotics: Ceftriaxone 2 g IV daily and rifampin 300 mg p.o. b.i.d.. Duration: at least 6 weeks. This will be followed by ceftriaxone 500 mg b.i.d. and rifampin for another 6 weeks to 12 weeks. -FeSO4 325 mg and Vitamin C 500 mg daily for 2 weeks -Aspirin 81 mg BID -Followup Hgb with Dr. Juancarlos hernández ID physician: Dr. Mata [facility]. Status at Discharge Cognitive/behavioral status at discharge: at baseline, oriented Functional status at discharge: uses cane/walker Overall status at discharge: patient is progressing back to baseline Exam Vital Signs (past 8 hours): Oxygen Delivery Method Room Air Oxygen Flow Rate 0 Narrative Exam Narrative: He complains of feeling tired which is partially related to his postoperative blood loss anemia with a hemoglobin today of 8.7. Nutritional iron intake and several weeks of oral vitamin-C/iron are suggested. Heart is regular rate and rhythm without murmur Lungs are clear to auscultation bilaterally Extremities have no ankle edema Right knee is in a clean wrap dressing with a knee brace on. Objective Labs 10/02/24 18:00 10/02/24 04:28 Labs: Laboratory Results - last 24 hr 10/02/24 18:00 WBC 6.7 D RBC 2.82 L Hgb 8.7 L Hct 25.6 L MCV 90.6 MCH 30.8 MCHC 34.0 RDW 13.9 Plt Count 189 Neut % (Auto) 70.8 D Lymph % (Auto) 18.5 L [place] % (Auto) 10.1 Eos % (Auto) 0.3 L Baso % (Auto) 0.3 Neut # (Auto) 4700 Lymph # (Auto) 1200 [place] # (Auto) 700 Eos # (Auto) 0 Baso # (Auto) 0 PFSH Medical History Colon cancer (2016) Infection of prosthetic right knee joint Surgical History History of total right knee replacement (TKR) (02/14/24) S/P colon resection (2016) Social History household members: spouse Smoking Status: Never smoker alcohol intake: former Discharge Assessment & Plan Assessment and Plan Plan of Treatment: PLAN Per Ortho and Per ID - Continue current antibiotic regimen: Ceftriaxone 2 grams daily and Rifampin 300 milligrams BID for 6 weeks. This will be followed by ceftriaxone 500 mg b.i.d. and rifampin for another 6 weeks to 12 weeks. - Aspirin 81 milligrams twice daily for DVT prophylaxis. - Monitor cultures for two weeks to confirm C. acnes sensitivity. - Patient to maintain use of the wound vac and hinged knee brace, both for seven days. - Address constipation with oral medications, specifically Senna. - Follow-up with Dr. Harding in two weeks to assess progress and wound healing. Discharge Plan Discharge Plan Patient Disposition: Home Provider Discharge Comment: Follow up your postop anemia with Dr. Juancarlos hernández. Discharge orders & Medications Prescriptions: New ascorbic acid (vitamin C) [Vitamin C] 500 mg Tablet 500 mg PO DAILY Qty: 14 0RF sennosides [senna] 8.6 mg Tablet 17.2 mg PO DAILY Qty: 30 0RF aspirin 81 mg Tablet,Delayed Release (Dr/Ec) 81 mg PO BID Qty: 60 0RF rifampin 300 mg Capsule 300 mg PO BID Qty: 90 0RF ferrous sulfate 325 mg (65 mg iron) Tablet 325 mg PO DAILY Qty: 14 0RF Continued alprazolam [Xanax] 0.5 mg tablet 0.5 mg PO DAILY PRN (Reason: anxiety) Patient Comments: Only when flying. meloxicam 15 mg tablet 15 mg PO DAILY Qty: 60 1RF Rx Instructions: Take one tab by mouth daily Pharmacist Comment: Home prescriptions sent previously. Antibiotics to be coordinated through [facility] Follow up/Referrals: Angelo Bauer [Primary Care Provider, Medical] Diet/Activity/Treatments Diet: Diet as Tolerated Activity: WBAT with HKB locked in extension Cold/Heat Therapy: Use ice machine 20 minutes on 20 minutes off every hour Skin/Wound/Dressing Care Report to your healthcare provider any signs of infection, such as:: chills, fever, night sweats, increased pain, unusual drainage and unusual redness Dressing: Maintain dressing until followup. Remove cord after a week Other wound treatment: Maintain HKB locked in extension Visit Report/Discharge Packet Instructions: DI for Knee Replacement, DI for Prescription Opioid Use Stand Alone Forms: Patient Portal/API, Stroke Signs & Symptoms Discharge Data Primary Care Provider: Angelo Bauer Quality VTE Deep Vein Thrombosis/Pulmonary Embolism Present on Admission: No
[2024-10-03 08:00] VITALS: BP 121/75; PULSE 88; RESP 12; O2SAT 99
--- NOTE | 2024-10-03 08:21 | P.DS_ITS ---
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 PAST SURGICAL HISTORY - Single-stage exchange of right knee arthroplasty for periprosthetic joint infection performed by me two days ago. There were no postoperative complications reported. SUBJECTIVE The patient reports experiencing pain that was rough at times during the night, accompanied by nausea on the first night. The patient expressed dissatisfaction with the hospital ice because it does not stay cold. He also mentioned issues with constipation and expressed a preference for oral medications to address it. The patient is eager to be discharged and return home. PHYSICAL EXAM 1) Constitutional: The patient is alert and oriented, engaged in the conversation, and demonstrates an understanding of discharge instructions. 2) Musculoskeletal: Exam of the right knee shows an incisional wound vac in place with a good seal. There is an THIAGO wrap with no strikes or bleeding on the dressing. The hinged knee brace is fitted appropriately, maintaining the knee in extension. Neurological exam indicates intact sciatic nerve function with ability to plantar flex and dorsiflex the hallux and ankle, and intact sensation in the foot. 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 PLAN - Continue current antibiotic regimen: Ceftriaxone 2 grams daily and Rifampin 300 milligrams BID. - Aspirin 81 milligrams twice daily for DVT prophylaxis. - Monitor cultures for two weeks to confirm C. acnes sensitivity. - Patient to maintain use of the wound vac and hinged knee brace, both for seven days. - Address constipation with oral medications, specifically Senna. - Follow-up appointment with me in two weeks to assess progress and wound healing. DISPOSITION The patient is planned to be discharged home today, pending final arrangements, with all necessary medications and instructions provided. Discharge Providers Provider Date of admission: 10/01/24 06:03 Discharge Date: 10/03/24 Primary care physician: Angelo Bauer Consults: 10/01/24 06:34 Consult to Anesthesiology Routine Comment: Consulting Provider: Anesthesiologist Reason for consultation: Regional block for post operative pain control 10/01/24 16:08 Consult to Discharge Planning Routine Comment: Consult to Occupational Therapy Evaluate & Treat Comment: Physician Instructions: Evaluate and treat Consult to Physical Therapy Evaluate & Treat Comment: Knee immobilizer for 7 days Physician Instructions: Evaluate and Treat Discharge provider: Tod Harding MD Exam Vital Signs (past 8 hours): Oxygen Delivery Method Room Air Oxygen Flow Rate 0 Objective Labs 10/02/24 18:00 10/02/24 04:28 Labs: Laboratory Results - last 24 hr 10/02/24 18:00 WBC 6.7 D RBC 2.82 L Hgb 8.7 L Hct 25.6 L MCV 90.6 MCH 30.8 MCHC 34.0 RDW 13.9 Plt Count 189 Neut % (Auto) 70.8 D Lymph % (Auto) 18.5 L Placer % (Auto) 10.1 Eos % (Auto) 0.3 L Baso % (Auto) 0.3 Neut # (Auto) 4700 Lymph # (Auto) 1200 Placer # (Auto) 700 Eos # (Auto) 0 Baso # (Auto) 0 PFSH Medical History Colon cancer (2016) Infection of prosthetic right knee joint Surgical History History of total right knee replacement (TKR) (02/14/24) S/P colon resection (2015) Social History household members: spouse Smoking Status: Never smoker alcohol intake: former Discharge Plan Discharge Plan Patient Disposition: Home Discharge orders & Medications Prescriptions: Continued alprazolam [Xanax] 0.5 mg tablet 0.5 mg PO DAILY PRN (Reason: anxiety) Patient Comments: Only when flying. meloxicam 15 mg tablet 15 mg PO DAILY Qty: 60 1RF Rx Instructions: Take one tab by mouth daily Pharmacist Comment: Home prescriptions sent previously. Antibiotics to be coordinated through [facility] Follow up/Referrals: Angelo Bauer [Primary Care Provider, Medical] Diet/Activity/Treatments Diet: Diet as Tolerated Activity: WBAT with HKB locked in extension Cold/Heat Therapy: Use ice machine 20 minutes on 20 minutes off every hour Skin/Wound/Dressing Care Report to your healthcare provider any signs of infection, such as:: chills, fever, night sweats, increased pain, unusual drainage and unusual redness Dressing: Maintain dressing until followup. Remove cord after a week Other wound treatment: Maintain HKB locked in extension Visit Report/Discharge Packet Instructions: DI for Knee Replacement, DI for Prescription Opioid Use Stand Alone Forms: Patient Portal/API, Stroke Signs & Symptoms Discharge Data Primary Care Provider: Angelo Bauer VTE Deep Vein Thrombosis/Pulmonary Embolism Present on Admission: No [facility] PROFEE Charge Codes Discharge inpatient/observation: [id number]
[2024-10-03] MEDS: DOCUSATE 100 MG CAPSULE 200 MG PO (08:43)
[2024-10-03] MEDS: ASCORBIC ACID 500 MG TABLET PO (08:43)
[2024-10-03] MEDS: ASPIRIN EC 81 MG TABLET PO (08:44)
[2024-10-03] MEDS: SENNOSIDES 8.6 MG TABLET 17.2 MG PO (08:44)
[2024-10-03] MEDS: FERROUS SULFATE 325 MG TABLET PO (08:44)
[2024-10-03] MEDS: TRANEXAMIC ACID 2,000 MG in SODIUM CHLORIDE 0.9% 100 ML 200 MG IV (08:49)
--- NOTE | 2024-10-03 09:05 | PT.IPTN ---
Current Diagnoses Infection and inflammatory reaction due to internal right knee prosthesis, initial encounter (10/01/24) Surgery Performed Operation Date: 10/01/24 07:45 Actual Procedures p Total Knee Arthroplasty Revision - Robot(Right) - Tod Harding MD Physical Therapy Treatment Note M2 PT-IP Current Condition Start: 10/02/24 12:25 Freq: NEEDED Status: Discharge Protocol: Document 10/02/24 09:50 AB (Rec: 10/02/24 12:46 AB [id number]) Physical Therapy Current Condition Current Condition Evaluation Date 10/02/24 Treatment Diagnosis s/p R TKA revision; difficulty in walking Onset Date 10/01/24 M3 PT-IP Subjective Start: 10/02/24 12:25 Freq: NEEDED Status: Discharge Protocol: Document 10/03/24 09:05 AB (Rec: 10/03/24 12:09 AB [id number]) Subjective Physical Therapy Visit Type Type Treatment Note Visit Start Time 09:05 Visit Stop Time 09:40 Number of CLINICAL RESEARCH ASSISTANT Visits 0 Physical Therapy Visit Comments Patient Comments agreeable to do PT Therapy Pain Assessment Pain When Pain Assessed At Rest Pain Present Pain Present Pain Reported Location right knee Intensity 4 Scale Used Numeric (0 - 10) Pain Management Apply Cold,Distraction,Modification of Treatment,Re- Techniques positioning,Timing of Activity with Medications M4 PT-IP Mobility and Gait Start: 10/02/24 12:25 Freq: NEEDED Status: Discharge Protocol: Document 10/03/24 09:05 AB (Rec: 10/03/24 12:09 AB [id number]) PT-Bed Mobility Assessment Supine to Sit Supine to Sit Standby Assistance Sit to Supine Sit to Supine Standby Assistance PT-Transfer Assessment Sit to and From Stand Sit to and from Standby Assistance,1 Person Assistance,Use of Upper Stand Extremities Equipment Transfer Assistive Gait Belt,Front Wheeled Walker Device Orthotic/Prosthetic No Devices or Brace: Transfers Transfer Destination Bed,Toilet Transfer Technique Stand Step Pivot Transfer Ability Level of Assist Standby Assistance,1 Person Assistance,Use of Upper Extremities Comments Mobility Comments pt in bed and agreeable to do PT. supine to sit SBA. requested to use the toilet. sit to stand from EOB SBA and ambulated to the toilet using FWW SBA. able to complete toileting needs without assistance. ambulated towards the sink SBA using FWW and was able to maintain standing balance using fWW for support SBA while completing handwashing. pt ambulated out in the hallway using FWW SBA ~ 150 ft. completed up/down steps using R rails ascending initial CGA and cues but able to complete SBA after 2 steps. pt started to walk back to his room but c/o nausea. instructed to sit on the w/c. assisted pt back to his room. informed nurse regarding nausea. BP checked: 139/94 o2 sat: 98% and CT 104. pt completed stand pivot transfer w/c to bed without AD SBA. sit to supine SBA. positioned pt in bed. call light and table placed within reach. Gait Assessment Gait Gait Assistance Standby Assistance,1 Person Assist Required: Distance (Feet) 150 Able to Maintain Yes Weight Bearing Status During Gait Assistive Devices Assistive Device Gait Belt,Front Wheeled Walker Orthotic/Prosthetic No Devices or Brace: Gait Deviations General Gait Pattern Antalgic Factors Limiting Gait Function Factors Limiting Decreased Activity Tolerance,Decreased Strength,Limited Gait Function Range of Motion,Pain,Poor Balance Stair Climbing Assessment Evaluation Level of Assist On Standby Assistance,Contact Guard Assistance Stairs Devices Stair Climbing Right Railing Assistive Devices Technique/Endurance Stair Climbing Ascend and Descend Direction Stair Climbing Step to Step Technique Number of Steps 3 Climbed Stair Climbing Set # 1 Repetitions (reps) M5 PT-IP Objective Assessments Start: 10/02/24 12:25 Freq: NEEDED Status: Discharge Protocol: Document 10/02/24 09:50 AB (Rec: 10/02/24 12:46 [id number]) Orientation Orientation/Cognition Level of Alertness Alert Orientation Name,Place,Situation Language Function No Deficits Noted Ability Safety Awareness Decreased Safety Awareness Memory Description No Deficits Noted Gross Range of Motion Lower Extremity ROM Impairments R knee NT: has R hinged brace on lock in extension position: per ortho notes: knee immobilizer for 7 days. Strength Lower Extremity Strength Assessment Right Impaired Hip 3-/5 Knee nt Sensation Assessment Sensation Gross Sensation Right LE Impaired,Left LE Impaired Sensation Numbness Description Comments Sensation Comments chronic BLE neuropathy per pt Muscle Tone Muscle Tone WNL Yes M6 PT-IP Treatment Start: 10/02/24 12:25 Freq: NEEDED Status: Discharge Protocol: Document 10/03/24 09:05 AB (Rec: 10/03/24 12:09 [id number]) Physical Therapy Treatment Education Education Provided Safety M7 PT-IP Assessment and Plan Start: 10/02/24 12:25 Freq: NEEDED Status: Discharge Protocol: Document 10/03/24 09:05 (Rec: 10/03/24 12:09 [id number]) PT Summary Assessment and Plan Potential Rehabilitation Good Potential Summary Impairments Pain,ROM,Strength,Balance,Sensation,Bed Mobility, Transfers,Gait,Activity Tolerance Progress Towards Progressing Toward Goals Goals Assessment Summary pt requiring SBA with mobility using FWW. pt plans to go home and will have his spouse to assist him. pt may go home when medically stable. Goals Bed Mobility Goal Independent Transfer Goal Independent,Front Wheeled Walker Gait Goal Independent,Front Wheel Walker Gait Distance 100 Other Goals up/down 2 steps R rail ascending SBA. Days to Meet Goals 10 Frequency of Treatment Other frequency 1-2x/day Treatment Plan Physical Therapy Bed Mobility Training,Transfer Training,Gait Training, Treatment Plan Therapeutic Exercise,Balance Retraining,Post Op Education,Discharge Planning,Hot or Cold Pack, Neuromuscular Re-ed,Coordination Retraining,Manual Therapy Precautions Brace R knee hinge brace locked in extension Weight Bearing Status Weight Bearing Weight Bear as Tolerated Status Allowed Weight RLE WBAT Bearing Amount ( enter % or #) (%) Recommendations To Nursing Amount of Assist 1 Person Assist Needed Discharge Recommendations PT Discharge Home with Assistance,Outpatient PT Recommendations Transportation Needs Private Vehicle at Discharge - PT assist 1
[2024-10-03] MEDS: ONDANSETRON 4 MG ODT PO (09:38)
--- NOTE | 2024-10-03 10:07 | CM.DPC ---
DCP Cont. Reviewed EMR and team rounds for pt's status updates. Pt has been medically cleared for home d/c. [facility] will call pt to coordinate him stopping at their office for the IV ABO teach, then start the first home dose tomorrow. Faxed the PICC note and labs to [facility], pt's spouse will transport him home. No further CM d/c needs are identified at this time.
== END 2024-10-03 11:46 | disposition home or self-care (01) | DRG 467 ==
PROVIDERS: Physician Assistant Surgical; Admitting Provider Orthopaedic Surgery Adult Reconstructive Orthopaedic Surgery; Referring Provider Orthopaedic Surgery Adult Reconstructive Orthopaedic Surgery; Visit Provider Orthopaedic Surgery Adult Reconstructive Orthopaedic Surgery
PROC: 0SPC0JZ Removal of Synthetic Substitute from Right Knee Joint, Open Approach (ICD-10-PCS; principal; 2024-10-01 07:45)
DX: T84.53XA Infection and inflammatory reaction due to internal right knee prosthesis, initial encounter (principal); D62 Acute posthemorrhagic anemia; B96.89 Other specified bacterial agents as the cause of diseases classified elsewhere; F41.9 Anxiety disorder, unspecified; Y79.2 Prosthetic and other implants, materials and accessory orthopedic devices associated with adverse incidents; Z85.038 Personal history of other malignant neoplasm of large intestine; Z90.49 Acquired absence of other specified parts of digestive tract
CPT/HCPCS: 36415; 36569; 73560; 80048; 85025; 87070; 87075; 87176; 87205; 97116; 97162; 97530; C1776; C1713; J0690; J0696; J1100; J1171; J1885; J2250; J2405; J2704; J3010